=== PATIENT | female | born 1955 | race Caucasian/White ===

== ENCOUNTER 2025-09-13 13:28 | Emergency (ER) | payer MEDICARE, OTHER, SELFPAY ==
--- OUTSIDE RECORDS SUMMARY | 2025-09-13 13:34 | XMS_ITS | Encounter Summary ---
Author Organization [facility] Address [address] [place], [place] [address]e. [place] [address] Care Team Providers Care Signal Wirer Name Role Phone Elena Heranndez MD Unavailable [phone] System, Provider Not In Primary Care Provider Un available Sandra Beaulieu MD Unavailable + [phone] Elena Hernandez MD Unavailable Ila Lopez [facility] Unavailable Caity Fontana MD Primary Care Provider [phone] Caity Fontana MD Unavailable [phone] Ila Lopez [facility] Unavailable [phone] Reason for Visit * Reason Comments Medication Refill Encounter Details Date Type Department Care Team (Late st Contact Info) Description 12/27/2024 Refill [facility] [address] [address] Elena Hernandez MD [address] [place] [id number] Medication Refill Social History Tobacco Use Types Packs/Day Years Used Date Smoking Tobacco: Never Smokeless Tobacco: Never PHQ-2 Answer Date Recorded PHQ-2 Score 4 09/10/2023 Adolescent Education Answer Date Record ed Getting School Help Needed Not on file 07/24 Comments Unknown Sex and Gender Information Value Date Recorded Sex Assigned at Not on file Legal Sex Female 3:11 AM ROLLER MILL OPERATOR Gender Identity Not on file Sexual Orientation Not on file documented as of this encounter Miscellaneous Notes * Telephone Encounter - Elena Hernandez MD - 12/27/2024 2:46 PM CDT She will need labs on file to continue this medication. * Telephone Encounter - Dm Bueno ATC - 12/27/2024 1:00 PM CDT Please deny Rx refill request for candesartan (ATACAND) 4 MG tablet if appropriate. Last refill was on 12/17/24 with 187 tablets, 0 refills. Thank you. Dm MARTINEZ ATC documented in this encounter Plan of Treatment Not on file documented as of this encounter Visit Diagnoses Diagnosis Migraine without aura and without status migrainosus, not intractable Migraine without aura, without mention of intractable migraine without mention of status migrainosus documented in this encounter Additional Health Concerns Assessment Noted Time PHQ-9 Depression Total Score: 9 09/10/20 23 11:25 AM ROLLER MILL OPERATOR documented as of this encounter Care Teams Signal Wirer Relationship Specialty Start Date End Date System, Provider Not In PCP - General Clinic 06/18/23 01/25/25 Caity Fontana MD [address] [facility] [place] [facility] [[email or web address] [address] [place], [place] [id number] PCP - General Internal Medicine 01/26/25 Elena Hernandez MD [address] [place] [address] Physician Neurology 06/18/23 Sandra Beaulieu MD [address] [place] [address] Neurology 07/24/23 Elena Hernandez MD [address] [place] [address] Assigned Neuroscience Provider 08/02/23 Ila Lopez [facility] [address] [place] [address] Pharmacist Pharmacist 01/26/25 Caity Fontana MD [address] [facility] [address] [place] [address] Assigned PCP 02/02/25 Ila Lopez [facility] [address] [place] [address] Assigned MTM Pharmacist 02/02/25 documented as of this encounter
--- OUTSIDE RECORDS SUMMARY | 2025-09-13 13:34 | XMS_ITS | Encounter Summary ---
Author Organization [place] Address [address] [place], [place] [address]. [place] [address] Care Team Providers Care Gore Seamer Name Role Phone Elena Hernandez MD Unavailable [phone] System, Provider Not In Primary Care Provider Un available Sandra Beaulieu MD Unavailable + [phone] Elena Hernandez MD Unavailable Ila Lopez [facility] Unavailable Caity Fontana MD Primary Care Provider [phone] Caity Fontana MD Unavailable [phone] Ila Lopez [facility] Unavailable [phone] Encounter Details Date Type Department Care Team (Late st Contact Info) Description 05/12/2024 [facility] [facility] [place] [id number] [place] [address] Elena Hernandez MD [address] [place] [id number] Social History Tobacco Use Types Packs/Day Years Used Date Smoking Tobacco: Never Smokeless Tobacco: Never PHQ-2 Answer Date Recorded PHQ-2 Score 4 09/10/2023 Adolescent Education Answer Date Record ed Getting School Help Needed Not on file 07/24 Comments Unknown Sex and Gender Information Value Date Recorded Sex Assigned at Not on file Legal Sex Female 3:11 AM STUDENT TEACHER Gender Identity Not on file Sexual Orientation Not on file documented as of this encounter Plan of Treatment Not on file documented as of this encounter Visit Diagnoses Not on filedocumented in this encounter Additional Health Concerns Assessment Noted Time PHQ-9 Depression Total Score: 9 09/10/20 23 11:25 AM STUDENT TEACHER documented as of this encounter Care Teams Gore Seamer Relationship Specialty Start Date End Date System, Provider Not In PCP - General Clinic 06/18/23 01/25/25 Caity Fontana MD [address] [place] [address] [place], [place] [address] PCP - General Internal Medicine 01/26/25 Elena Hernandez MD [address] [place], [place] [address] Physician Neurology 06/18/23 Sandra Beaulieu MD [address] [place], [place] [address] Neurology 07/24/23 Elena Hernandez MD [address] [place], [place] [address] Assigned Neuroscience Provider 08/02/23 Ila Lopez [facility] [address] [place] [address] Pharmacist Pharmacist 01/26/25 Caity Fontana MD [address] [place] [address] [place] [address] Assigned PCP 02/02/25 Ila Lopez [facility] [address] [place] [address] Assigned MTM Pharmacist 02/02/25 documented as of this encounter
--- OUTSIDE RECORDS SUMMARY | 2025-09-13 13:34 | XMS_ITS | Encounter Summary ---
Author Organization [facility] Address [address] [place], [place] [address]e. [place] [address] Care Team Providers Care Community Development Planner Name Role Phone Elena Hernandez MD Unavailable [phone] System, Provider Not In Primary Care Provider Un available Sandra Beaulieu MD Unavailable + [phone] Elena Hernandez MD Unavailable [phone] Ila Lopez [facility] Unavailable [phone] Caity Fontana MD Primary Care Provider [phone] Caity Fontana MD Unavailable [phone] Ila Lopez [facility] Unavailable [phone] Encounter Details Date Type Department Care Team (Late st Contact Info) Description 12/23/2024 [facility] [place] [facility] [address] [address] Kel-Dm Millan, EB Social History Tobacco Use Types Packs/Day Years Used Date Smoking Tobacco: Never Smokeless Tobacco: Never PHQ-2 Answer Date Recorded PHQ-2 Score 4 09/10/2023 Adolescent Education Answer Date Record ed Getting School Help Needed Not on file 07/24 Comments Unknown Sex and Gender Information Value Date Recorded Sex Assigned at Not on file Legal Sex Female 3:11 AM OUTPATIENT FACILITY PHYSICAL THERAPIST Gender Identity Not on file Sexual Orientation Not on file documented as of this encounter Plan of Treatment Not on file documented as of this encounter Visit Diagnoses Not on filedocumented in this encounter Additional Health Concerns Assessment Noted Time PHQ-9 Depression Total Score: 9 09/10/20 23 11:25 AM OUTPATIENT FACILITY PHYSICAL THERAPIST documented as of this encounter Care Teams Community Development Planner Relationship Specialty Start Date End Date System, Provider Not In PCP - General Clinic 06/18/23 01/25/25 Caity Fontana MD [address] [place] [address] [place] [address] PCP - General Internal Medicine 01/26/25 Elena Hernandez MD [address] [place] [address] Physician Neurology 06/18/23 Sandra Beaulieu MD [address] [place] [address] Neurology 07/24/23 Elena Hernandez MD [address] [place] [address] Assigned Neuroscience Provider 08/02/23 Ila Lopez [facility] [address] [place] [address] Pharmacist Pharmacist 01/26/25 Caity Fontana MD [address] [place] [address] [place] [address] Assigned PCP 02/02/25 Ila Lopez [facility] [address] [place] [address] Assigned MTM Pharmacist 02/02/25 documented as of this encounter
--- OUTSIDE RECORDS SUMMARY | 2025-09-13 13:34 | XMS_ITS | Clinical Summary ---
Author Organization [facility] Address [address], [place] [address] Care Team Providers Care Hardware Installer Name Role Phone Nadira Davis DNP, APNP, DRIVEMATIC MACHINE OPERATOR Primary Care Prov ider Source Comments You are receiving this document as you are listed as the primary care provider,follow-up provider, or the patient has been referred to you for consultation.This is in compliance with the Medicare andMedicaid EHR Incentive Program,which states Providers who transition their patient to another setting of careor provider of care or refers their patient to another provider of care shouldprovide summary care record for each transition of care or referral. [facility] Allergies Active Allergy Reactions Criticality Noted Date Comments Hydrocodone-Acetamin ophen Gastrointestinal High 08/26/2015 Iodine Edema,generalized High 01/20/2012 Facial swelling verified Morphine And Codeine Gastrointestinal,Headache High 03/16/2012 Nickel Rash 12/22/2020 Other Other, see comments Medium 03/16/2012 Oxycodone Gastrointestinal,Headache High 08/26/2015 Penicillins Dizziness,Gastrointe laxmi l,Headache Medium 01/19/2009 verified Sertraline Gastrointestinal 01/28/2022 GI issues, abdominal pain and cramping, nausea Medications polyethylene glycol-propylene glycol (SYSTANE) 0.4-0.3 % eye drop solution Place 1 Drop into eye(s) every 24 hours as needed. 01/08/2023 Active drug not in computer AZO Active traMADol (ULTRAM) 50 MG tabletIndication s:Chronic pain syndrome Take 1 Tablet (50 mg) by mouth daily as needed for Pain. 30 Tablet 06/10/2023 Active losartan (COZAAR) 25 MG tabletIndication s:Hypertension, unspecified type (HRC) Take 1 Tablet (25 mg) by mouth daily. 30 Tablet 06/10/2023 Active Active Problems Problem Noted Date Diagnosed Date Moderate episode of recurrent major depressive d isorder 04/26/2022 Cervical spondylosis without myelopathy 07/18/20 21 Lumbar back pain 07/18/2021 Chronic pain syndrome 05/23/2021 Obstructive sleep apnea syndrome in adult 2017 Hemiplegia and hemiparesis f ollowing unspecified cerebrovascular disease affecting left dominant side 10/22/2017 Stress incontinence in female 07/22/2016 Sacroiliac joint pain 11/23/2015 History of total hip replacement 08/26/2015 Migraine headache 01/19/2015 Stage 3 chronic kidney disease 01/13/2015 Overview (06/10/2023): Chronic Kidney Disease (CKD) Stage III GFR 30-59 Arthritis of hip 03/02/2014 Fibromyalgia 02/23/2014 Anxiety 07/08/2013 Bone disorder 12/07/2012 Hypothyroidism 12/07/2012 Hyperlipidemia 10/08/2011 Cervical radiculopathy 11/19/2010 Non-toxic multinodular goiter 04/27/2009 Resolved Problems Problem Noted Date Diagnosed Date Resolved Date Recurrent major depressive disorder 09/12/2018 06/13/2023 Immunizations Immunization Administration Dates Next Due DTaP 12/16/2011 Flu Vac (3+ yrs) 09/09/2003 HepB Adult (Engerix-B, 20+ y rs, 3 dose series) 08/30/2003,03/17/2003 Influenza, Unspecified Formulation 09/10/2012 Pneumococcal Conjugate, Unsp ecified Formulation 09/07/2019(Deferred: Parental Decision) Td (7+ yrs) 12/13/1998 Tdap 12/16/2011 Social History Tobacco Use Types Packs/Day Years Used Date Smoking Tobacco: Never Smokeless Tobacco: Never Tobacco Cessation:Counseling Given: Not Answered Alcohol Use Standard Drinks/Week Comments Yes 4 (1 standard drink = 0.6 oz pur e alcohol) PHQ-2 Answer Date Recorded PHQ-2 Score 3 06/10/2023 Comments Unknown Sex and Gender Information Value Date Recorded Sex Assigned at Not on file Legal Sex Female 6:35 PM CDT Gender Identity Not on file Sexual Orientation Not on file Last Filed Vital Signs Vital Sign Reading Time Taken Comments Blood Pressure 155/104 06/10/2023 12:05 PM CDT Pulse 85 06/10/2023 12:05 PM CDT Temperature 37.6 C (99.6 F) 06/10/2023 11:46 AM CDT Respiratory Rate - - Oxygen Saturation 100% 06/10/2023 11:46 AM CDT Inhaled Oxygen Concentration - - Weight 98.9 kg (218 lb) 06/10/2023 11:46 AM CDT Height 167.6 cm (5' 6) 06/10/2023 11:46 AM CDT Body Mass Index 35.19 06/10/2023 11:46 AM CDT Plan of Treatment Health Maintenance Due Date Last Done Comments Hep C Screening (Preventive Services) 1955 FIT Colon Cancer Screening 1999 HepB Vaccine (3) 10/25/2003 08/30/2003, 03/17/2003 Pneumococcal Vaccine 50+ Yrs (1 of 1 - PCV) 2005 Zoster/Shingles Vaccine (1 o f 2) 2005 Dexa 2020 DTaP/Tdap/Td Vaccine (3 - Tdap) 12/15/2021 12/16/2011, 12/16/2011, 12/13/1998 Mammogram 12/26/2023 12/25/2022, 01/19/2018 Medicare Annual Wellness Visit 06/10/2024 06/10/2023 COVID-19 Vaccine (1 - 2024-2 6 season) 2025 Influenza Vaccine (#1) 2025 2, 09/09/2003 Cholesterol 06/10/2028 06/10/2023 RSV Vaccine (1 - 1-dose 75+ series) 2030 HepA Vaccine Aged Out No longer eligi ble based on patient's age to complete this topic Hib Vaccine Aged Out No longer eligi ble based on patient's age to complete this topic IPV (Polio) Vaccine Aged Out No longe r eligible based on patient's age to complete this topic MCV4 Vaccine Aged Out No longer eligi ble based on patient's age to complete this topic Meningococcal B Vaccine Aged Out No l onger eligible based on patient's age to complete this topic Procedures Procedure Name Priority Date/Time Associated Diagnosis Comments LIPID PANEL & DIRECT LDL (IF NEEDED) Routine 06/10/2023 10:51 AM CDT Screening for cholesterol level from Last 3 Months or Most Recently Relevant to Health Maintenance Results * (ABNORMAL) Lipid Panel and Direct LDL(If Needed) (06/10/2023 10:51 AM CDT) Cholesterol 272(H) 0 - 199 mg/dL 06/10/2023 11:[address] [facility] Triglyceride 180(H) <=149 mg/dL 06/10/2023 11:[address] [facility] HDL Cholesterol 59 >=40 mg/dL 11:[address] [facility] LDL, Calculated 177(H) <130 mg/dL 3 11:[address] [facility] Non HDL Chol, Calculated 213(H) <=159 mg/dL 06/10/2023 11:[address] [facility] Cholesterol/HDL Ratio 4.6 06/10/2023 11:[address] [facility] Hours Fasting 17.0 8 - 12 Hours 06/10/2023 11:[address] [facility] Blood Venipuncture / Unknown 06/10/2023 10:51 AM CDT 06/10/2023 10:53 AM CDT us Nadira Davis DNP, APNP, DRIVEMATIC MACHINE OPERATOR LAB_1 Fi nal Result [facility] [address] [place] [address], [facility] [phone] from Last 3 Months or Most Recently Relevant to Health Maintenance Insurance [facility] [place] [address] MEDICARE [facility] [employer] MEDICARE Care Teams Hardware Installer Relationship Specialty Start Date End Date Feser, Nadira B, DNP, APNP, DRIVEMATIC MACHINE OPERATOR [address] [place] [address] PCP - General Nurse Practitioner 06/04/23
--- OUTSIDE RECORDS SUMMARY | 2025-09-13 13:34 | XMS_ITS | Clinical Summary ---
Author Organization [facility] Address [address] [place] [address] Care Team Providers Care School Librarian Name Role Phone Nadira Hamm OD Unavailable Caity Fontana MD Primary Care Provider [phone] Allergies Active Allergy Reactions Criticality Noted Date Comments Cat Dander Other - Describe In Comment Field Low 03/16/2012 House Dust Mite Other - Describe In Comment Field Medium 03/16/2012 Hydrocodone-Acetaminop hen GI Upset High 08/26/2015 Iodine And Iodide Containing Products Edema High 01/20/2012 Facial swelling verified Nickel Rash 12/22/2020 Oxycodone GI Upset,Headache High 08/26/2015 Oxycodone-Acetaminophe n GI Upset High 03/16/2012 Penicillins GI Upset,Dizziness Medium 01/19/2009 verified Sertraline GI Upset 01/28/2022 GI issues, abdominal pain and cramping, nausea Medications acetaminophen (TYLENOL EXTRA STRGTH) 500 mg tablet Take 1 Tablet by mouth every 6 hours if needed (no more than 1500mg daily). Max acetaminophen dose: 4000mg in 24 hrs. 0 1 Active albuterol HFA (PRO-AIR; VENTOLIN; PROVENTIL) 90 mcg/actuation inhalerIndicati ons:SOB (shortness of breath) Inhale 2 Puffs by mouth every 6 hours if needed. 1 Each 6 1 Active lidocaine 5 % topical patchIndication s:Rib pain on left side Apply to intact skin to cover most painful area for max 12hr per 24hr period. 30 Patch 2 1 Active esomeprazole (NexIUM 24HR) 20 mg capsuleIndicati ons:Gastroesoph ageal reflux disease, unspecified whether esophagitis present Take 1 Capsule (20 mg) by mouth once daily before a meal. 30 Capsule 1 Active medication order composer Vitamin D3 (4000iu)-K2 plus 4 immune boosters 0 2 Active CPAP DME Order 2 Active artificial tears, peg 400-propylene glycol, (Systane, propylene glycoL,) 0.4-0.3 % drop ophthalmic Place 1 Drop into both eyes each time if needed for Dry Eyes. 0.1 mL 3 Active traMADoL (ULTRAM) 50 mg tabletIndicatio ns:Chronic pain syndrome,Fibrom yalgia,Chronic midline low back pain, unspecified whether sciatica present TAKE 1 TABLET(50 MG) BY MOUTH TWICE DAILY NEEDED FOR PAIN 60 Tablet 3 Active Active Problems Problem Noted Date Diagnosed Date Moderate episode of recurrent major depressive d isorder 04/26/2022 COVID-19 09/12/2021 Multilevel degenerative disc disease 07/18/2021 Lumbar back pain 07/18/2021 Cervical neck pain with evidence of disc disease 07/18/2021 Cervical radicular pain 07/18/2021 Spondylosis without myelopat hy or radiculopathy, lumbar region 07/18/2021 Cervical spondylosis without myelopathy 07/18/20 21 Fibromyalgia 05/23/2021 Chronic pain syndrome 05/23/2021 Immunizations Immunization Administration Dates Next Due Hepatitis B (Adult) 08/30/2003,08/30/2003,2002,03/17/2003 Td (Age >=7 Years) 12/13/1998 Tdap 12/16/2011 Tdap, Unspecified 12/16/2011 Family History Medical History Relation Name Comments Suicide Attempts Samson Lee suicide 12/12 Relation Name Status Comments Samson Lee Social History Tobacco Use Types Packs/Day Years Used Date Smoking Tobacco: Never Smokeless Tobacco: Never Tobacco Cessation:Counseling Given: Not Answered Alcohol Use Standard Drinks/Week Comments Yes 1 (1 standard drink = 0.6 oz pur e alcohol) 1 red wine daily PHQ-2 Answer Date Recorded PHQ-2 TOTAL SCORE 2 01/28/2022 Social Connections Answer Date Recorded Frequency of Communication with Friends and Fami ly Not on file 10/03/2021 Financial Resource Strain Answer Date R ecorded Difficulty of Paying Living Expenses Not on file 10/03/2021 Difficulty of Paying Living Expenses Not on file 10/03/2021 Comments No Sex and Gender Information Value Date Recorded Sex Assigned at Female 03/05/2022 3:11 PM CDT Legal Sex Female 3:27 PM TREATING AND PUMPING SUPERVISOR Gender Identity Female 03/05/2022 3:11 PM CDT Sexual Orientation Not on file Obstetrics History Last Filed Vital Signs Vital Sign Reading Time Taken Comments Blood Pressure 133/96 01/10/2023 11:38 AM CDT Pulse 86 01/10/2023 11:38 AM CDT Temperature 36.7 C (98.1 F) 08/16/2022 12:43 PM CDT Respiratory Rate 20 08/16/2022 12:43 PM CDT Oxygen Saturation 97% 01/10/2023 11:38 AM CDT Inhaled Oxygen Concentration - - Weight 99.8 kg (220 lb) 01/10/2023 11:38 AM CDT Height 170.2 cm (5' 7) 12/11/2022 2:10 PM TREATING AND PUMPING SUPERVISOR Body Mass Index 34.46 12/11/2022 2:10 PM TREATING AND PUMPING SUPERVISOR Plan of Treatment Health Maintenance Due Date Last Done Comments Hepatitis C screening for ag e 18-79 1973 Hepatitis B series for 19+ ( 3 of 3 - 19+ 3-dose series) 10/25/2003 08/30/2003, 08/30/2003, 03/17/2003, Additional history exists Pneumococcal series for age 50+ (1 of 1 - PCV) 2005 RSV vaccine for adults or (1 - Risk 50-74 years 1-dose series) 2005 Zoster (shingles) series for age 50+ (1 of 2) 2005 Colonoscopy through age 75 03/20/201603/20 (Verified in Care Everywhere or Patient Record) DEXA/DXA scan for age 65+ 08/22/20202008 (Completed outside of [facility]) Medicare Wellness for age 65+ 2020 Tetanus booster 12/15/2021 12/16/2011, 0302/2012, 12/13/1998 Depression screening for age 12+ 01/28/2023 01/28/2022, 12/19/2021, 03/15/2021 Lipids for age 45-75 06/10/2023 06/10/2018 (Completed outside of [facility]) BMI (ht and wt on same day) for age 18+ 12/12/2023 12/11/2022, 12/22/2020 Mammogram for age 45-75 12/26/2023 12/26/19 23, 01/20/2018 (Completed outside of [facility]), 01/20/2018 (Verified in Care Everywhere or Patient Record) COVID-19 vaccine series (2024- season) 2025 Influenza Vaccine (#1) 2025 Procedures Procedure Name Priority Date/Time Associated Diagnosis Comments XR MAMMO SEMAJ BILAT DIAG JESSICA 12/25/2022 10:00 AM CDT Breast tenderness in female from Last 3 Months or Most Recently Relevant to Health Maintenance Results * *XR MAMMO SEMAJ DIAG BILAT (12/25/2022 10:00 AM CDT) Anatomical Region Laterality Modality BREASTS, Breast Left, Breast Right Bilateral Mammography, Other 12/25/2022 10:0 0 AM CDT Impressions 12/25/2022 10:46 AM CDT ACR BI-RADS Category 1: Negative. Results given to the patient who should resume annual screening mammography. The patient knows to follow up with her primary care provider to evaluate potential causes for referred pain to the right breast. She also knows to return if her symptoms persist or worsen. PATIENTS: You will also receive a letter with your examination results in an easy to read format. If you have questions about your results, please contact your referring provider. Narrative 12/25/2022 10:46 AM CDT For Patients: As a result of the Century Cures Act, medical imaging exams and procedure reports are released immediately into your electronic medical record. You may view this report before your referring provider. If you have questions, please contact your health care provider. EXAM: XR MAMMO SEMAJ BILAT DIAG, US BREAST UNILATERAL RIGHT LIMITED LOCATION: [facility] DATE/TIME: 12/25/2022 10:00 AM INDICATION: Right breast tenderness in female. COMPARISON: 01/19/2018, 01/25/2016 and 10/05/2014. MAMMOGRAPHIC FINDINGS: Bilateral full-field digital diagnostic mammograms performed. The breasts are almost entirely fatty. Stable small rounded asymmetry in the upper outer right breast. No significant change from previous mammogram and no mammographic evidence of malignancy in either breast. Images evaluated with the assistance of CAD. Breast tomosynthesis was used in interpretation. A marker was placed at the area of pain in the upper outer right breast. There is no abnormality in this location on the mammogram. ULTRASOUND FINDINGS: Targeted ultrasound of the right breast from the 9:00 to 11:00 position does not reveal any sonographic abnormality. Only normal breast tissue was seen. Procedure Note Jean Garvey MD - 12/25/2022 For Patients: As a result of the Cures Act, medical imagingexams and procedure reports are released immediately into your electronicmedical record. You may view this report before your referring provider.If you have questions, please contact your health care provider. EXAM: XR MAMMO SEMAJ BILAT DIAG, US BREAST UNILATERAL RIGHT LIMITED LOCATION: [facility] DATE/TIME: 12/25/2022 10:00 AM INDICATION: Right breast tenderness in female. COMPARISON: 01/19/2018, 01/25/2016 and 10/05/2014. MAMMOGRAPHIC FINDINGS: Bilateral full-field digital diagnostic mammogramsperformed. The breasts are almost entirely fatty. Stable small roundedasymmetry in the upper outer right breast. No significant change fromprevious mammogram and no mammographic evidence of malignancy in eitherbreast. Images evaluated with the assistance of CAD. Breast tomosynthesiswas used in interpretation. A marker was placed at the area of pain in theupper outer right breast. There is no abnormality in this location on themammogram. ULTRASOUND FINDINGS: Targeted ultrasound of the right breast from the 9:00to 11:00 position does not reveal any sonographic abnormality. Only normalbreast tissue was seen. IMPRESSION: ACR BI-RADS Category 1: Negative. Results given to the patient who should resume annual screeningmammography. The patient knows to follow up with her primary care provider to evaluatepotential causes for referred pain to the right breast. She also knows toreturn if her symptoms persist or worsen. PATIENTS: You will also receive a letter with your examination results inan easy to read format. If you have questions about your results, pleasecontact your referring provider. us Latasha Polo PA-C MAMMO Final Resu lt from Last 3 Months or Most Recently Relevant to Health Maintenance Insurance MEDICARE PROVIDER [facility] [place] [id number] Advance Directives * Full Code (Latest Code Status on File) Date Activated Date Inactivated Comments 09/12/2021 3:07 AM 09/21/2021 7:56 PM Question Answer Comments Code Status Discussion: Reviewed Preferences Care Teams School Librarian Relationship Specialty Start Date End Date Caity Fontana MD [address] [facility] [address] [place] [address] PCP - General Internal Medicine 08/04/25 Nadira Hamm OD [address] [place] [address] Flow Worker 05/17/22
--- OUTSIDE RECORDS SUMMARY | 2025-09-13 13:34 | XMS_ITS | Clinical Summary ---
Author Organization [facility] Address [address] [place], [place] [address]. [place] [address] Care Team Providers Care Machine Binder Stripper Name Role Phone Elena Hernandez MD Unavailable [phone] Sandra Beaulieu MD Unavailable [phone] Elena Hernandez MD Unavailable [phone] Ila Lopez [facility] Unavailable Caity Fontana MD Primary Care Provider Caity Fontana MD Unavailable Ila Lopez [facility] Unavailable [phone] Allergies Active Allergy Reactions Criticality Noted Date Comments Bee Pollen Other (See Comments) Low 03/16/2012 Cat Dander Other (See Comments) Low 03/16/2012 Cephalexin Diarrhea,GI Disturbance High 01/13/2025 Hydrocodone-Acetaminop hen GI Disturbance High 08/26/2015 Iodine Swelling High 01/20/2012 Facial swelling verified Morphine And Codeine GI Disturbance,Headache High 03/16/2012 Nickel Rash Low 12/22/2020 Oxycodone GI Disturbance,Headache High 08/26/2015 Oxycodone-Acetaminophe n GI Disturbance High 03/16/2012 Penicillins Dizziness,GI Disturbance,Headache, Other (See Comments) Medium 01/19/2009 verified Sertraline GI Disturbance 01/28/2022 GI issues, abdominal pain and cramping, nausea Medications ubrogepant (UBRELVY) 100 MG tabletIndication s:Chronic migraine without aura without status migrainosus, not intractable Take 1 tablet (100 mg) by mouth at onset of headache 18 tablet 3 4 Active Additional Information Patient not taking.Reported on 01/26/2025 polyethylene glycol-propylene glycol (SYSTANE) 0.4-0.3 % SOLN ophthalmic solution Apply 1 drop to eye. 3 Active candesartan (ATACAND) 4 MG tabletIndication s:Migraine without aura and without status migrainosus, not intractable Take 1 tablet (4 mg) by mouth daily for 7 days, THEN 2 tablets (8 mg) daily. 187 tablet 5 Active atenolol (TENORMIN) 25 MG tabletIndication s:Migraine without aura and without status migrainosus, not intractable Take 1 tablet (25 mg) by mouth 2 times daily. OK to space tablets throughout the day if needed. 180 tablet 4 5 Active vitamin D3 (CHOLECALCIFEROL ) 50 mcg (2000 units) tablet Take 1 tablet by mouth daily. Active Carboxymethylcel lulose Sodium (DRY EYE RELIEF) 1 % GEL Apply 1 drop to eye at bedtime. Active acetaminophen (TYLENOL 8 HOUR ARTHRITIS PAIN) 650 MG CR tablet Take 650 mg by mouth every 8 hours as needed for mild pain or fever. Active ibuprofen (ADVIL/MOTRIN) 200 MG tablet Take 400 mg by mouth every 6 hours as needed for pain. Active traMADol (ULTRAM) 50 MG tablet Take 50 mg by mouth every 6 hours as needed for severe pain. 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 01/13/2025 Moderate episode of recurrent major depressive d isorder 01/13/2025 Stage 3a chronic kidney disease 01/13/2025 Resolved Problems Problem Noted Date Diagnosed Date Resolved Date IAMAFT CARE HEAL TRAUM FRAC LOWER LEG 12/19/2005 02/18/2006 IAMJOINT PAIN-LOWER LEG 12/19/2005 05/0 06/2006 Encounters Date Type Department Care Team Description 08/17/2025 MyC Medical Advice [facility] Neurology M[facility] [address] [facility] [address] [place] [address] Ila Lopez, [facility] from Last 3 Months Immunizations Immunization Administration Dates Next Due DTAP (<7y) 12/16/2011 Flu, Unspecified 09/10/2012 Hepatitis B, Adult (Energix-B/Recombivax HB) ,03/17/2003 Influenza (IIV3) PF 09/09/2003 TDAP (Adacel,Boostrix) 12/16/2011 Td (Adult), Adsorbed 12/13/1998 Social History Tobacco Use Types Packs/Day Years Used Date Smoking Tobacco: Never Smokeless Tobacco: Never Tobacco Cessation:Counseling Given: Not Answered Alcohol Use Standard Drinks/Week Comments Yes 14 (1 standard drink = 0.6 oz pu re alcohol) 2 glasses of sangria per day PHQ-2 Answer Date Recorded PHQ-2 Score 5 01/13/2025 Adolescent Education Answer Date Record ed Getting School Help Needed Not on file 07/24 Food Insecurity Answer Date Recorded Within the past 12 months, d id you worry that your food would run out before you got money to buy more? Patient declined 0 01/13/2025 Within the past 12 months, d id the food you bought just not last and you didn t have money to get more? No 01/13/2025 Housing Stability Answer Date Recorded Do you have housing? (Housin g is defined as stable permanent housing and does not include staying outside in a car, in a tent, in an abandoned building, in an overnight chcf, or couch-surfing.) Yes 01/13/2025 Are you worried about losing your housing? No 01/13/2025 Financial Resource Strain Answer Date R ecorded Within the past 12 months, h ave you or your family members you live with been unable to get utilities (heat, electricity) when it was really needed? No 01/13/2025 Transportation Needs Answer Date Record ed Within the past 12 months, h as lack of transportation kept you from medical appointments, getting your medicines, non-medical meetings or appointments, work, or from getting things that you need? No 01/13/2025 Interpersonal Safety Answer Date Record ed Do you feel physically and e motionally safe where you currently live? Yes 01/13/2025 Within the past 12 months, h ave you been hit, slapped, kicked or otherwise physically hurt by someone? No 01/13/2025 Within the past 12 months, h ave you been humiliated or emotionally abused in other ways by your partner or ex-partner? 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 Gender Identity Not on file Sexual Orientation Not on file Last Filed Vital Signs Vital Sign Reading Time Taken Comments Blood Pressure 129/78 01/13/2025 10:30 AM CDT Pulse 75 01/13/2025 10:30 AM CDT Temperature 36.9 C (98.5 F) 01/13/2025 10:30 AM CDT Respiratory Rate 18 01/13/2025 10:30 AM CDT Oxygen Saturation 99% 01/13/2025 10:30 AM CDT Inhaled Oxygen Concentration - - Weight 104.3 kg (230 lb) 01/13/2025 10:30 AM CDT Height 167 cm (5' 5.75) 01/13/2025 10:30 AM CDT Body Mass Index 37.41 01/13/2025 10:30 AM CDT Plan of Treatment Health Maintenance Due Date Last Done Comments ADVANCE CARE PLANNING 1955 ANNUAL REVIEW OF HM ORDERS [address] COLONOGRAPHY 1955 DEPRESSION ACTION PLAN 1955 DEXA 1955 DIABETES SCREENING 1955 FIT 1955 FLEX SIG 1955 LIPID 1955 MICROALBUMIN 1955 sDNA (Cologuard) 1955 HEMOGLOBIN 1956 URINALYSIS 1956 HEPATITIS C SCREENING 1973 PNEUMOCOCCAL VACCINE 50+ YEARS (1 of 1 - PCV) 2005 RSV VACCINE (1 - Risk 50-74 years 1-dose series) 2005 ZOSTER VACCINE (1 of 2) 2005 MEDICARE ANNUAL WELLNESS VISIT 2020 DTAP/TDAP/TD VACCINE (3 - Td or Tdap) 12/15/2021 12/16/2011, 12/16/2011, 12/13/1998 MAMMO SCREENING 12/25/2024 12/25/2022, 12/11, 12/25/2022, Additional history exists DEPRESSION 6 MO INDEX REPEAT PHQ-9 05/16/2025 01/13/2025, 09/10/2023, 07/24/2023 COVID-19 VACCINE ( season) 2025 INFLUENZA VACCINE (#1) 2025 09/10/2012, 2002 FALL RISK ASSESSMENT 01/13/2026 01/13/2025 COLONOSCOPY 02/23/2034 02/24/2024, 03/20/2011 COLORECTAL CANCER SCREENING 02/23/2034 HPV VACCINE (No Doses Required) Completed MENINGITIS VACCINE Aged Out No longer eligible based on patient's age to complete this topic Procedures Procedure Name Priority Date/Time Associated Diagnosis Comments COLONOSCOPY - HIM SCAN Routine 02/24/2024 from Last 3 Months or Most Recently Relevant to Health Maintenance Results * Colonoscopy - HIM Scan (02/24/2024) Narrative Nancy Guerrero - 02/24/2024 See encounter dated - 01/13/2025 us Patient Reported PROCEDURES Final Result from Last 3 Months or Most Recently Relevant to Health Maintenance Insurance MEDICARE [facility] MEDICARE SUPPLEMENT [place] [id number] MEDICARE [facility] MEDICARE SUPPLEMENT [place] [id number] * Guarantor: Mariola Benitez Account Type Relation to Patient Date of Phone Billing Address Medication Therapy Self 1955 [address] [place] [address] MEDICARE Care Teams Machine Binder Stripper Relationship Specialty Start Date End Date Caity Fontana MD [address] [place] [address] [place] [address] PCP - General Internal Medicine 01/26/25 Elena Hernandez MD [address] [place] [address] Physician Neurology 06/18/23 Sandra Beaulieu MD [address] [place] [id number] Neurology 07/24/23 Elena Hernandez MD [address] [place] [address] Assigned Neuroscience Provider 08/02/23 Ila Lopez [facility] [address] [place] [id number] Pharmacist Pharmacist 01/26/25 Caity Fontana MD [address] [facility] [address] [place] [address] Assigned PCP 02/02/25 Ila Lopez [facility] [address] [place] [address] Assigned MTM Pharmacist 02/02/25
--- OUTSIDE RECORDS SUMMARY | 2025-09-13 13:34 | XMS_ITS | Clinical Summary ---
Author Organization [facility] Address [address] [place] [address] Care Team Providers Care Women'S Soccer Coach Name Role Phone Elsewhere, Pcp Primary Care Provider Unavailabl e Source Comments Patient records contain information from all sites at [facility]. For routine questions regarding patient records, call [phone] during business hours, M-F 8:00 AM - 5:00 PM Central Time. Record requests for emergency care only can be directed to [phone] at any time.[facility] Allergies Active Allergy Reactions Criticality Noted Date Comments Amoxicillin GI intolerance Medium 01/19/2009 verified Bee Pollen Other (see comments) Low 03/16/2012 Cat Dander Other (see comments) Low 03/16/2012 House Dust Mite Other (see comments) Medium 03/16/2012 Hydrocodone-Acetaminop hen GI intolerance High 08/26/2015 Iodine Edema (Reselect Reaction),Swelling High 01/20/2012 Facial swelling verified Iodine And Iodide Containing Products Edema (Reselect Reaction) High 01/20/2012 Facial swelling verified Morphine Headache,Nausea Only High 03/16/2012 Nickel Rash 12/22/2020 Oxycodone GI intolerance,Headache High 08/26/2015 Oxycodone-Acetaminophe n GI intolerance High 03/16/2012 Penicillin Other (see comments) 2015 Sertraline GI bleeding,GI intolerance,Nausea Only 01/28/2022 GI issues, abdominal pain and cramping, nausea Medications * This document contains information received from the source organization and may not represent a complete record from that organization. cholecalciferol , vitamin D3, 4,000 unit tablet Take 1 tablet by mouth 2 (two) times a day. 7 Active traMADoL (ULTRAM) 50 mg tabletIndicatio ns:Chronic Pain/Nonacute Pain Take 1 tablet (50 mg total) by mouth 2 (two) times a day as needed for pain Indications: Chronic Pain/Nonacute Pain. 60 tablet 1 0 Active DME CPAPIndications :Obstructive Sleep Apnea Adult DME Order 1 each 2 Active lidocaine (LIDODERM) 5 % Apply to intact skin to cover most painful area for max 12hr per 24hr period. 1 Active esomeprazole (NexIUM) [address] capsule Take 20 mg by mouth. 1 Active acetaminophen (TYLENOL) 500 mg tablet Take 500 mg by mouth every 6 (six) hours as needed. 1 Active ubrogepant (Ubrelvy) 100 mg tablet tablet Take 100 mg by mouth. 4 Active traMADoL (Ultram) 50 mg tablet Take 50 mg by mouth. 3 Active atenoloL (Tenormin) 50 mg tablet Take 50 mg by mouth 2 (two) times a day. 4 Active erenumab-aooe (Aimovig Autoinjector) 70 mg/mL injection Inject 70 mg under the skin. 4 Active losartan (Cozaar) 25 mg tablet Take 25 mg by mouth daily. 3 Active peg 400-propylene glycol (Systane, propylene glycoL,) 0.4-0.3 % ophthalmic solution Administer 1 drop into affected eye(s) daily as needed. 3 Active lidocaine (Lidoderm) 5 % adhesive patch,medicated Place 1 patch on the skin daily. 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 08/26/2015 Migraine Headache 01/19/2015 Chronic Kidney Disease Stage 3 Glomerular Filtration Rate 30 To 59 01/13/2015 Overview (03/04/2017): Chronic Kidney Disease (CKD) Stage III GFR 30-59 Arthritis Hip 03/02/2014 Menopause 03/02/2014 Fibromyalgia 02/23/2014 Anxiety 07/08/2013 Hypothyroidism 12/07/2012 Bone Disorder 12/07/2012 Hyperlipidemia 10/08/2011 Radiculopathy Cervical 11/19/2010 Spondylosis Lumbar Without Myelopathy 11/19/2010 Goiter Multinodular Nontoxic 04/27/2009 Resolved Problems Problem Noted Date Diagnosed Date Resolved Date History Of Falling 05/22/2018 8 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 018 Headache Unspecified 12/07/2012 017 Overview (05/30/2017): chronic Sinusitis 12/07/2012 03/23/2018 Immunizations Immunization Administration Dates Next Due HepB Adult 08/30/2003,03/17/2003 Influenza, Seasonal, Injectable 09/09/2003 Influenza, Unspecified 09/10/2012 Pneumococcal Conjugate(PCV), Unspecified 09/07/2019(Deferred: Parental decision) Td (Adult), adsorbed 12/13/1998 Tdap 12/16/2011 Social History Tobacco Use Types Packs/Day Years Used Date Smoking Tobacco: Never Smokeless Tobacco: Never Tobacco Cessation:Counseling Given: Not Answered Alcohol Use Standard Drinks/Week Comments No 0 (1 standard drink = 0.6 oz pur e alcohol) infrequent [facility] Utilities Answer Date Recorded In the past 12 months has e [employer], [employer], oil, or water [employer] threatened to shut off services in your home? No 07/19/2024 Hunger Vital Sign Answer Date Recorded Within the past 12 months, y ou worried that your food would run out before you got the money to buy more. Never true 07/19/20 24 Within the past 12 months, t he food you bought just didn't last and you didn't have money to get more. Never true 07/19/2024 PRAPARE - Transportation Answer Date Re corded In the past 12 months, has l ack of transportation kept you from medical appointments or from getting medications? No 04/2024 In the past 12 months, has l ack of transportation kept you from meetings, work, or from getting things needed for daily living? No 07/19/2024 Depression Answer Date Recor ded PHQ-9 Total Score (max 27) 3 10/21 Housing Stability Answer Date Recorded What is your living situation today? I have a [facility] place to live 07/19/2024 Comments No Sex and Gender Information Value Date Recorded Sex Assigned at Female 02/17/2018 7:46 PM CDT Legal Sex Female 12:15 PM HAND CARVER Gender Identity Female 02/17/2018 7:46 PM CDT Sexual Orientation Straight 02/17/2018 7: 46 PM CDT Last Filed Vital Signs Vital Sign Reading Time Taken Comments Blood Pressure 152/99 06/25/2024 9:44 AM CDT Pulse 87 06/25/2024 9:44 AM CDT Temperature 36.3 C (97.3 F) 08/18/2019 4:10 PM HAND CARVER Respiratory Rate 16 02/04/2019 2:42 PM CDT Oxygen Saturation 97% 09/07/2019 9:52 AM HAND CARVER Inhaled Oxygen Concentration - - Weight 101 kg (222 lb 14.2 oz) 06/25/2024 9:44 A M CDT Height 169.5 cm (5' 6.73) 06/25/2024 9:44 AM CD T Body Mass Index 35.19 06/25/2024 9:44 AM CDT Plan of Treatment Health Maintenance Due Date Last Done Comments Bone Density Scan (Osteoporosis Screen) 1955 CT Colonography 1955 Cologuard 1955 Depression Monitoring (PHQ-9) 1955 FIT 1955 Hepatitis B Vaccines (3 of 3 - 19+ 3-dose series) 10/25/2003 08/30/2003, 03/17/2003 Pneumococcal vaccine (50+ years) (1 of 1 - PCV) 2005 Zoster Vaccines (1 of 2) 2005 Lipid (Cholesterol) Screening 06/10/2019 06/10/2018, 01/01/2018, 01/13/2017, Additional history exists Colonoscopy 03/20/2021 03/20/2011 Colorectal Cancer Screening 03/20/2021 DTaP,Tdap,and Td Vaccines (2 - Td or Tdap) 12/15/2021 12/16/2011, 12/16/2011, 12/13/1998 Creatinine Level (Kidney Function Test) 11/07/2022 11/07/2021, 09/22/2021, 09/21/2021, Additional history exists Potassium Level 11/07/2022 11/07/2021, 09/12, 09/21/2021, Additional history exists Sodium Level 11/07/2022 11/07/2021, 09/12, 09/21/2021, Additional history exists Mammogram 12/26/2023 12/25/2022, 12/11, 01/19/2018, Additional history exists Depression Monitoring (PHQ-9 for quality tracking) 10/13/2024 Fall Risk Screen (Annual) 10/13/2024 Fasting Glucose for Diabetes Screening 11/07/2024 11/07/2021, 09/22/2021, 09/21/2021, Additional history exists COVID-19 Vaccine ( season) 2025 Influenza Vaccine (#1) 2025 09/10/2012, 2002 Hepatitis C Screening Completed 03/26/2016 , 03/26/2016, 08/24/2015 IPV Vaccines Aged Out No longer eligi ble based on patient's age to complete this topic Medical Devices Implanted Type Area Hand Trimmer Device Identifier Shelf Expiration Date Model / Serial / Lot Conversions - Default Historical Implant Device Implanted:02/10 (Quantity not on file) Hardware e.g. pins/screws /rods Foot Description:Body Location - Feet. Device Status Text - Hardware. [place] Screw 2 Canc 6.5 X 40 - Thomas [id number] Implanted:Qty: 1 on 05/27/2012 Hardware e.g. pins/screws /rods [employer] Description:Device Manufactu rer - [employer]. Device Status Text - [id number]. [place] Screw 2 Canc 6.5 X 40 - Thomas [id number] Implanted:Qty: 1 on 08/23/2015 Hardware e.g. pins/screws /rods [employer] Description:Device Manufactu rer - [employer]. Device Status Text - [id number]. Hip Implant Hip Implant Right: Hip Stem [place] 5x Std 145 - Thomas [id number] Implanted:Qty: 1 on 05/27/2012 Hip Implant Other/Legacy - See Implant Description [employer] Description:Device Manufactu rer - [employer]. Body Location - Other. Left. Device Status Text - [id number]. [place] Shell Multi 2 54mm - Thomas [id number] Implanted:Qty: 1 on 05/27/2012 Hip Implant Other/Legacy - See Implant Description [employer] Description:Device Manufactu rer - [employer]. Body Location - Other. Left. Device Status Text - [id number]. Delta-Head Ceramic 36mm +5 - Thomas [id number] Implanted:Qty: 1 on 05/27/2012 Hip Implant Other/Legacy - See Implant Description [employer] Description:Device Manufactu rer - [employer]. Body Location - Other. Left. Device Status Text - [id number]. [place] Liner Altrx Neut 36x54 - Thomas [id number] Implanted:Qty: 1 on 05/27/2012 Hip Implant Other/Legacy - See Implant Description [employer] Description:Device Manufactu rer - [employer]. Body Location - Other. Left. Device Status Text - [id number]. Delta-Head Ceramic 36mm +5 - Thomas [id number] Implanted:Qty: 1 on 08/23/2015 Hip Implant Other/Legacy - See Implant Description [employer] Description:Device Manufactu rer - [employer]. Body Location - Other. Right. Device Status Text - [id number]. [place] Liner Altrx Neut 36x54 - Thomas [id number] Implanted:Qty: 1 on 08/23/2015 Hip Implant Other/Legacy - See Implant Description [employer] Description:Device Manufactu rer - [employer]. Body Location - Other. Right. Device Status Text - [id number]. [place] Shell Multi 2 54mm - Thomas [id number] Implanted:Qty: 1 on 08/23/2015 Hip Implant Other/Legacy - See Implant Description [employer] Description:Device Manufactu rer - [employer]. Body Location - Other. Right. Device Status Text - [id number]. Stem [place] 5x Std 145 - Thomas [id number] Implanted:Qty: 1 on 08/23/2015 Hip Implant Other/Legacy - See Implant Description [employer] Description:Device Manufactu [facility] [employer]. Body Location - Other. Right. Device Status Text - [id number]. Procedures Procedure Name Priority Date/Time Associated Diagnosis Comments COMPREHENSIVE METABOLIC PANEL, S/P Routine 10/20/2018 3:12 PM HAND CARVER Arthritis Hand LIPID PANEL, S Routine 06/10/2018 2:48 PM CDT Hyperlipidemia BI BREAST SCREENING BILATERAL WITH TOMOSYNTHESIS RAD - Routine (most inpatients and all outpatients) 01/19/2018 12:19 PM CDT Screening Mammogram Breast Cancer BONE DONOR 6 MONTH SCREEN TEST SET Routine 03/26/2016 9:45 AM CDT COLONOSCOPY Routine 03/20/2011 from Last 3 Months or Most Recently Relevant to Health Maintenance Results * (ABNORMAL) Comprehensive Metabolic Panel (10/20/2018 3:12 PM HAND CARVER) Potassium, S 4.7 3.6 - 5.2 mmol/L 10/20/2018 4:[address] [facility] Sodium, S 140 135 - 145 mmol/L 10/20/2018 4:[address] [facility] Chloride, S 103 98 - 107 mmol/L 10/20/2018 4:[address] [facility] Bicarbonate, S 27 22 - 29 mmol/L 10/20/2018 4:[address] [facility] Anion Gap 10 7 - 15 10/20/2018 4:[address] [facility] BUN (Blood Urea Nitrogen), S 20 6 - 21 mg/dL 10/20/2018 4:[address] [facility] Creatinine 1.01 0.59 - 1.04 mg/dL 10/20/2018 4:[address] [facility] eGFR-Non Black/ 59(L) >=60 mL/min/BS A 10/20/2018 4:17 PM [facility] Comment: ----ADDITIONAL INFORMATION---- Estimated GFR calculated using the 2009 CKD_EPI creatinine equation. eGFR-Black/ 68 >=60 mL/min/BS A 10/20/2018 4:17 PM [facility] Comment: ----ADDITIONAL INFORMATION---- Estimated GFR calculated using the 2009 CKD_EPI creatinine equation. Calcium, Total, S 9.5 8.8 - 10.2 mg/dL 10/20/2018 4:17 PM [facility] Glucose, S 95 70 - 140 mg/dL 10/20/2018 4:17 PM [facility] Protein, Total, S 7.2 6.3 - 7.9 g/dL 10/20/2018 4:17 PM [facility] Albumin, S 4.7 3.5 - 5.0 g/dL 10/20/2018 4:17 PM [facility] Aspartate Aminotransferase (AST), S 31 8 - 43 U/L 10/20/2018 4:17 PM [facility] Alkaline Phosphatase, S 68 35 - 104 U/L 10/20/2018 4:17 PM [facility] Alanine Aminotransferase (ALT), S 27 7 - 45 U/L 10/20/2018 4:17 PM [facility] Bilirubin, Total, S 0.3 <=1.2 mg/dL 10/20/2018 4:17 PM [facility] Blood (Blood, Venous) 10/20/2018 3:12 PM HAND CARVER 10/20/2018 3:14 PM [facility] Guy Kim M.D. LAB BLOOD ADD-ON Final R esult [facility] [address] * (ABNORMAL) Lipid Panel (06/10/2018 2:48 PM CDT) Cholesterol, Total 248(H) mg/dL 2017 3:47 PM CDT [facility] Comment: ----REFERENCE VALUE---- Desirable: < 200 Borderline high: 200 - 239 High: > or = 240 Triglycerides 189(H) mg/dL 06/10/2018 3:47 PM CDT [facility] Comment: ----REFERENCE VALUE---- Normal: <150 Borderline high: 150-199 High: 200-499 Very high: > or =500 Cholesterol, HDL, S 70 >=50 mg/dL 06/10/2018 3:47 PM CDT [facility] Calculated LDL 140(H) mg/dL 06/10/2018 3:47 PM CDT [facility] Comment: ----REFERENCE VALUE---- Desirable: <100 Above Desirable: 100-129 Borderline high: 130-159 High: 160-189 Very high: > or =190 Cholesterol, Non-HDL, Calculated 178(H) mg/dL 06/10/2018 3:47 PM CDT [facility] Comment: ----REFERENCE VALUE---- Desirable: <130 Above Desirable: 130-159 Borderline high: 160-189 High: 190-219 Very high: > or =220 Blood (Blood, Venous) 06/10/2018 2:48 PM CDT 06/10/2018 2:50 PM CDT Guy Kim M.D. LAB BLOOD ADD-ON Final R esult [facility] [address] * BI Breast Screening Bilateral with Tomosynthesis (01/19/2018 12:19 PM CDT) Anatomical Region Laterality Modality Breast Bilateral Mammography 01/20/2018 8:51 AM CDT Impressions 01/20/2018 8:53 AM CDT IMPRESSION: Negative. RECOMMENDATION: Annual Screening Mammogram ASSESSMENT: BI-RADS: 1: Negative. Narrative 01/20/2018 8:53 AM CDT EXAM: BI BREAST SCREENING BILATERAL WITH TOMOSYNTHESIS Current study was evaluated with a Computer Aided Detection (CAD) system. INDICATION: Screening mammogram. COMPARISON: Prior exams were available for comparison. DENSITY: a. The breast(s) are almost entirely fatty. FINDINGS: No mammographic findings of malignancy. Procedure Note Pierce Hinton M.D. - 01/20/2018 EXAM: BI BREAST SCREENING BILATERAL WITH TOMOSYNTHESIS Current study was evaluated with a Computer Aided Detection (CAD) system. INDICATION: Screening mammogram. COMPARISON: Prior exams were available for comparison. DENSITY: a. The breast(s) are almost entirely fatty. FINDINGS: No mammographic findings of malignancy. IMPRESSION: Negative. RECOMMENDATION: Annual Screening Mammogram ASSESSMENT: BI-RADS: 1: Negative. Guy Kim M.D. IMG BI PROCEDURES Final Result * Bone Donor 6 Month Screen Test Set (03/26/2016 9:45 AM CDT) HX Hiv-1/-2, Plus O Ab Screen Donor Negative [facility] Comment:Mailed In Specimen Donor HBcore Antibody Negative [facility] Comment:Mailed In Specimen HCV Ab Screen Donor Negative [facility] Comment:Mailed In Specimen 03/26/2016 9:45 AM CDT 03/26/2016 9:45 AM CDT Narrative [facility] - 03/28/2016 2:15 PM CDT Mailed In Specimen Maxx Tong M.D. LAB BLOOD NON ADD-ON Final Re sult [facility] [address] [place], [place] [address] * Colonoscopy (03/20/2011) EXT Colonoscopy Normal - See Scanned Report for Details Normal - See Scanned Report for Details, [facility] - Report Received and Scanned Comment:Colonoscopy complete d in-house. Anatomical Region Laterality Modality Endoscopy us Historical Provider GI PROCEDURE ORDERABLES Danii l Result from Last 3 Months or Most Recently Relevant to Health Maintenance Insurance MEDICARE [facility] hydrocrane operator [place] [id number] Care Teams Women'S Soccer Coach Relationship Specialty Start Date End Date Elsewhere, Pcp PCP - General Family Medicine 07/03/21
--- OUTSIDE RECORDS SUMMARY | 2025-09-13 13:34 | XMS_ITS | Encounter Summary ---
Author Organization [facility] Address [address] [place], [place] [address]. [place] [address] Care Team Providers Care Synthetic Staple Extruder Name Role Phone Elena Hernandez MD Unavailable System, Provider Not In Primary Care Provider Un available Sandra Beaulieu MD Unavailable [phone] Elena Hernandez MD Unavailable Ila Lopez [facility] Unavailable Caity Fontana MD Primary Care Provider [phone] Caity Fontana MD Unavailable [phone] Ila Lopez [facility] Unavailable [phone] Reason for Visit * Reason Comments Med Change Request Encounter Details Date Type Department Care Team (Late st Contact Info) Description 04/30/2024 Reji Diez [facility] [address] [address] Elena Hernandez MD [address] [place] [address] [id number] Med Change Request Social History Tobacco Use Types Packs/Day Years Used Date Smoking Tobacco: Never Smokeless Tobacco: Never PHQ-2 Answer Date Recorded PHQ-2 Score 4 09/10/2023 Adolescent Education Answer Date Record ed Getting School Help Needed Not on file 07/24 Comments Unknown Sex and Gender Information Value Date Recorded Sex Assigned at Not on file Legal Sex Female 3:11 AM ADMISSIONS SPECIALIST Gender Identity Not on file Sexual Orientation Not on file documented as of this encounter Miscellaneous Notes * Telephone Encounter - Elena Hernandez MD - 05/12/2024 1:20 PM CDT I will hold off until we hear back from insurance * Telephone Encounter - Elena Hernandez MD - 05/06/2024 8:55 PM CDT Do we need to consider an alternative? * Telephone Encounter - Dm Bueno ATC - 05/05/2024 11:58 AM CDT A prior authorization has been initiated for the medication. Dm MARTINEZ ATC on 05/05/2024 at 11:59 AM documented in this encounter Plan of Treatment Not on file documented as of this encounter Visit Diagnoses Diagnosis Chronic migraine without aura without status migrainosus, not intractable Chronic migraine without aura, without mention of intractable migraine without mention of status migrainosus documented in this encounter Additional Health Concerns Assessment Noted Time PHQ-9 Depression Total Score: 9 09/10/20 11:25 AM ADMISSIONS SPECIALIST documented as of this encounter Care Teams Synthetic Staple Extruder Relationship Specialty Start Date End Date System, Provider Not In PCP - General Clinic 06/18/23 01/25/25 Caity Fontana MD [address] [facility] [place] [address] PCP - General Internal Medicine 01/26/25 Elena Hernandez MD [address] [place] [address] Physician Neurology 06/18/23 Sandra Beaulieu MD [address] [place] [address] Neurology 07/24/23 Elena Hernandez MD [address] [place] [address] Assigned Neuroscience Provider 08/02/23 Ila Lopez [facility] [address] [place] [address] Pharmacist Pharmacist 01/26/25 Caity Fontana MD [address] [address] Assigned PCP 02/02/25 Ila Lopez [facility] [address] [place] [address] Assigned MTM Pharmacist 02/02/25 documented as of this encounter
--- OUTSIDE RECORDS SUMMARY | 2025-09-13 13:34 | XMS_ITS | Encounter Summary ---
Author Organization [facility] Address [address] [place] [address]. [place] [address] Care Team Providers Care Sales Counselor Name Role Phone Elena Hernandez MD Unavailable [phone] Sandra Beaulieu MD Unavailable [phone] Elena Hernandez MD Unavailable [phone] Ila Lopez [facility] Unavailable [phone] Caity Fontana MD Primary Care Provider [phone] Caity Fontana MD Unavailable Ila Lopez [facility] Unavailable [phone] Encounter Details Date Type Department Care Team (Late st Contact Info) Description 08/17/2025 [facility] Neurology [facility] [address] [address] Ila Lopez, [facility] [address] [place], [place] [id number] Social History Tobacco Use Types Packs/Day Years Used Date Smoking Tobacco: Never Smokeless Tobacco: Never Alcohol Use Standard Drinks/Week Comments Yes 14 [...] Answer Date Recorded Do you have housing? (Jeannein g is defined as stable permanent housing and does not include staying outside in a car, in a tent, in an abandoned building, in an overnight custodial, or couch-surfing.) Yes 01/13/2025 Are you worried [...] on file Legal Sex Female 3:11 AM RESIDENTIAL LIFE DIRECTOR Gender Identity Not on file Sexual Orientation Not on file documented as of this encounter Plan of Treatment Not on file documented as of this encounter Visit Diagnoses Not on filedocumented in this encounter Additional Health Concerns Assessment Noted Time PHQ-9 Depression Total Score: 16 025 10:18 AM CDT documented as of this encounter Care Teams Sales Counselor Relationship Specialty Start Date End Date Caity Fontana MD [address] [place] [address] [place] [address] PCP - General Internal Medicine 01/26/25 Elena Hernandez MD [address] [place] [address] Physician Neurology 06/18/23 Sandra Beaulieu MD [address] [place] [address] Neurology 07/24/23 Elena Hernandez MD [address] [place] [address] Assigned Neuroscience Provider 08/02/23 Ila Lopez [facility] [address] [place] [address] Pharmacist Pharmacist 01/26/25 Caity Fontana MD [address] [facility] [address] [place] [address] Assigned PCP 02/02/25 Ila Lopez [facility] [address] [place] [address] Assigned MTM Pharmacist 02/02/25 documented as of this encounter
[2025-09-13 13:45] VITALS: BP 149/89; PULSE 63; RESP 16; TEMP 37.2; O2SAT 99; BMI 34.5
--- NOTE | 2025-09-13 14:02 | CRLHL7_ITS ---
For Patients: As a result of the Century Cures Act, medical imaging exams and procedure reports are released immediately into your electronic medical record. You may view this report before your referring provider. If you have questions, please contact your health care provider. Indication: Fall/injury. Technique: Left wrist 3 views. Comparison: None. Findings: Acute, nondisplaced fracture of the left distal radial metaphysis with extension into the radiocarpal joint. No significant step-off of the articular surface visualized. The ulna and scaphoid are intact. Syno-fg-ipbultex degenerative changes of the 1st carpometacarpal joint. No aggressive osseous lesion. Mild soft tissue swelling about the wrist. Impression: Acute, nondisplaced fracture of the left distal radial metaphysis with extension into the radiocarpal joint. Dictated by Jean Greco MD @ 09/13/2025 2:32:14 PM (Electronically Signed)
--- NOTE | 2025-09-13 14:03 | ED.UPPEXIN ---
HPI - Extremity Injury (Upper) General Chief Complaint: Extremity Pain/Injury, Upper Stated Complaint: left shoulder pain moving down towards fingers Time Seen by Provider: 09/13/25 13:30 History of Present Illness HPI narrative: This 70-year-old female comes in with an injury to her left upper extremity. She fell prior to arrival onto her left outstretched hand. She does not report any other injury. She has distinct tenderness at her left wrist and feels some tingling sensation into her 3rd 4th and 5th digits on the left hand. Related Data Home Medications ?Medication ?Instructions ?Recorded ?Confirmed atenolol 25 mg tablet 25 mg PO BID 09/13/25 09/13/25 Previous Rx's ?Medication ?Instructions ?Recorded ketorolac 10 mg tablet 10 mg PO TID 5 days #15 tabs 09/13/25 Allergies Allergy/AdvReac Type Severity Reaction Status Date / Time acetaminophen (From Percocet) Allergy Intermediate Headache Verified 09/13/25 13:48 codeine Allergy Intermediate Headache Verified 09/13/25 13:48 oxycodone (From Percocet) Allergy Intermediate Headache Verified 09/13/25 13:48 narcans AdvReac migraines Uncoded 09/13/25 13:01 Review of Systems Status of ROS: Reports: 10 or more systems reviewed and unremarkable except as noted in History and below Narrative: Constitutional: No fevers, no weight gain or loss. Eyes: No discharge. No vision changes. HENT: No congestion, no sore throat, no ear pain. Cardiovascular: No chest pain, no palpitations. Respiratory: No shortness of breath, no wheezes, no cough. Gastrointestinal: No abdominal pain, no vomiting, no diarrhea. Genitourinary: No dysuria, no hematuria. Musculoskeletal: Left wrist injury as described above. Skin: No rashes, no pruritis. Neurological: No dizziness, weakness, sensory change, speech change. Endo/Heme/Allergies: No bruising or bleeding. No polydipsia. Pysch: no suicidality, no anxiety, no insomnia. All other systems reviewed and are negative. Exam Narrative: Exam Narrative: Constitutional: Well-developed, well-nourished, no acute distress. HEENT: Normocephalic, atraumatic. Neck: Normal range of motion. Nontender. Supple. Heart: Regular. No murmurs. Normal rate. Intact distal pulses. Lungs: Clear to auscultation. No chest discomfort. No wheezes, rhonchi, or rales. Abdomen: Normal bowel sounds. Nontender. No rebound tenderness. Genitalia: Deferred. Back: No midline tenderness. Normal range of motion. Extremities: Distinct tenderness at the left wrist. Mild swelling but no obvious sign of deformity. Skin: Intact. No rash. Warm. No erythema or pallor. Neurologic: No altered sensation. No weakness. Alert and oriented. Psychiatric: No suicidality. No anxiety or depression. No insomnia. Nursing notes and vitals signs are reviewed. Const: Vital Signs, click to edit/add: Vital Signs - 24 hr 09/13/25 13:45 Temperature 98.9 F Pulse Rate [Pulse Oximeter] 63 Respiratory Rate 16 [facility] 149/89 H Pulse Oximetry 99 Oxygen Delivery Me thod Room Air Course Vital Signs Vital signs: Initial Vital Signs Temperature 98.9 F 09/13/25 13:45 Temperature Source Temporal Artery Scan 09/13/25 13:45 Pulse Rate 63 09/13/25 13:45 Respiratory Rate 16 09/13/25 13:45 Blood Pressure 149/89 H 09/13/25 13:45 Blood Pressure Mean 109 H 09/13/25 13:45 Blood Pressure Position Sitting 09/13/25 13:45 Pulse Oximetry 99 09/13/25 13:45 Oxygen Delivery Method Room Air 09/13/25 13:45 Vital Signs Temperature 98.9 F 09/13/25 13:45 Pulse Rate 63 09/13/25 13:45 Respiratory Rate 16 09/13/25 13:45 Blood Pressure 149/89 H 09/13/25 13:45 Pulse Oximetry 99 09/13/25 13:45 Oxygen Delivery Method Room Air 09/13/25 13:45 Temperature 98.9 F 09/13/25 13:45 Pulse Rate 63 09/13/25 13:45 Respiratory Rate 16 09/13/25 13:45 Blood Pressure 149/89 H 09/13/25 13:45 Pulse Oximetry 99 09/13/25 13:45 Oxygen Delivery Method Room Air 09/13/25 13:45 MDM - Extremity Injury (Upper) MDM Narrative Medical decision making narrative: This patient comes in with an injury to her left wrist. X-ray images show a nondisplaced fracture of the radius that does it extend into the joint space. There is no need to manipulate this injury. I simply placed a volar splint across the wrist joint using Ortho Glass material. The patient did receive an oral dose of Toradol 10 mg and a prescription for the same. I advised her to follow-up with orthopedic clinic for ongoing management. Imaging Data XR L Wrist: Radiologist's impression: Acute, nondisplaced fracture of the left distal radial metaphysis with extension into the radiocarpal joint. No significant step-off of the articular surface visualized. The ulna and scaphoid are intact. [id number] degenerative changes of the 1st carpometacarpal joint. No aggressive osseous lesion. Mild soft tissue swelling about the wrist. Discharge Plan Discharge Clinical Impression: Fracture of wrist Patient Disposition: Home, Self-Care Condition: Stable Additional Instructions: Wear splint and use medicine as needed and directed. Follow-up with orthopedic clinic for ongoing management. Call [phone] for appointment. Prescriptions: New ketorolac 10 mg tablet 10 mg PO TID 5 Days Qty: 15 0RF No Action atenolol 25 mg tablet 25 mg PO BID Follow Up/Referrals: Provider,Not a Local [Primary Care Provider, Family Practice] Stand Alone Forms: [email or web address] Info Instructions
[2025-09-13] MEDS: KETOROLAC 10 MG TABLET PO (15:20)
== END 2025-09-13 15:33 | disposition home or self-care (01) ==
PROVIDERS: Emergency Provider Emergency Medicine Emergency Medical Services
DX: S52.502A Unspecified fracture of the lower end of left radius, initial encounter for closed fracture (principal); W01.0XXA Fall on same level from slipping, tripping and stumbling without subsequent striking against object, initial encounter
CPT/HCPCS: 29125; 73110; 99283; 99284; A9270